=== PATIENT | male | born 1950 | race Caucasian/White ===

== ENCOUNTER 2017-01-24 06:51 | Day surgery (SDC) ==
[2017-01-24] MEDS ORDERED: DIPRIVAN 20 ML VIAL IVP ONE (08:09)
[2017-01-24] MEDS ORDERED: VERSED ONE (08:09)
[2017-01-24 09:05] VITALS: BP 137/90; TEMP 97.8
--- NOTE | 2017-01-24 14:52 | OP ---
INDICATIONS FOR PROCEDURE: 66-year-old gentleman presents for a colonoscopy exam. He has a past history of polyps, greater than 5 years ago on colonoscopy, unknown histology. MEDICATIONS: SEE ANESTHESIA NOTES. PROCEDURE: COLONOSCOPY. REPORT: The risks, benefits, alternatives and limitations were discussed in detail with the patient. Informed consent was obtained. After adequate sedation was achieved, a digital rectal exam revealed good tone, no masses. The colonoscope was introduced into the rectum and advanced under direct visual guidance to the cecum. The cecum was identified by the appendiceal orifice and IC valve. I then slowly withdrew the scope in a circumferential manner examining the mucosa quite carefully. I looked on the proximal and distal side of folds and flexures as best as possible. I was able to retroflex the scope in the right colon and left colon to increase visualization. The colonic mucosa was unremarkable its entire length other than several small mouth diverticula scattered throughout the sigmoid colon. No other abnormalities were noted including on retroflex view of the anal canal. The prep was good. The withdrawal time was 7 minutes and 35 seconds. The patient tolerated the procedure well with stable vital signs and pulse oximetry throughout. IMPRESSION: 1. DIVERTICULOSIS RECOMMENDATIONS: 1. High fiber diet. 2. Office visit as needed. 3. Colon screening examination again in 10 years, sooner if there are any signs or symptoms to indicate otherwise. CC: DR. FLORIAN ARCE
== END 2017-01-24 09:15 | disposition home or self-care (01) ==
LOC: SURG 06:51
PROVIDERS: ATTEND Internal Medicine Gastroenterology
DX: Z09 Encounter for follow-up examination after completed treatment for conditions other than malignant neoplasm (principal); Z86.010 Personal history of colon polyps; K57.30 Diverticulosis of large intestine without perforation or abscess without bleeding
CPT/HCPCS: 00810; G0105

== ENCOUNTER 2018-06-27 10:33 | Outpatient (CLI) ==
--- NOTE | 2018-06-27 14:28 | DI ---
EXAM: Three views of the lumbar spine. History: Lower back pain. Findings: Atherosclerotic vascular calcifications. No acute fracture. Minimal retrolisthesis of L1 on L2, L2 on L3 and L3 on L4 most likely degenerative in nature. Moderate to severe disc space narro wing at L1-L2 and L2-L3 with endplate sclerosis and prominent anterior osteophytes. Moderate disc sp zane narrowing seen elsewhere. There is severe facet hypertrophy on the left at L5-S1. Impression: 1. No acute fracture. 2. Degenerative changes. 3. Atherosclerotic vascular disease
== END 2018-06-27 10:34 | disposition home or self-care (01) ==
LOC: RAD 10:33
PROVIDERS: ATTEND Internal Medicine
DX: M54.5 Low back pain (principal)